=== PATIENT | male | born 1940 | race Asian ===

== ENCOUNTER 2017-04-04 15:37 | Inpatient (IN) | payer MEDICARE, MEDICAID ==
[2017-04-04] VITALS (10 sets, daily range): BP systolic 138–173; BP diastolic 61–83
[~2017-04-04] VITALS: Ht 177.8 cm; Wt 83.9 kg
[2017-04-04] MEDS ORDERED: ASPIRIN 81 MG TAB.CHEW ONE (15:55)
[2017-04-04] MEDS ORDERED: ASPIRIN 81 MG TAB.CHEW PO ONE (16:00)
--- NOTE | 2017-04-04 16:00 | NUR ---
[id number] FROM PMD'S OFFICE FOR WEAKNESS, BRADYCARDIA 40'S. PT AAOX3. DENIES CP, SOB. VSS. NOTED HR 70'S, 50'S. SEEN BY MD FOR EVAL. IV ACCESS ELECTRONIC WARFARE OFFICER. SAFETY AND COMFORT MEASURES PROVIDED. WILL MONITOR.
[2017-04-04 16:05] LABS: BASOPHILS # (AUTO) 0.1 /CMM (0.0-0.2); BASOPHILS % (AUTO) 0.8 % (0.0-2.0); EOSINOPHILS # (AUTO) 0.2 /CMM (0.0-0.7); EOSINOPHILS % (AUTO) 2.8 % (0.0-6.0); HEMATOCRIT 34 % (39-51); HEMOGLOBIN 11.6 g/dL (13.5-17.5); LYMPHOCYTES # (AUTO) 2.5 /CMM (0.8-4.8); LYMPHOCYTES % (AUTO) 31.4 % (20.0-44.0); MEAN CORPUSCULAR HEMOGLOBIN 28 PG (26.0-33.0); MEAN CORPUSCULAR HGB CONC 34 g/dl (31.0-36.0); MEAN CORPUSCULAR VOLUME 82 fL (80-96); MONOCYTES # (AUTO) 0.5 /CMM (0.1-1.30); NEUTROPHILS # (AUTO) 4.7 /CMM (1.8-8.9); PLATELET COUNT (AUTO) 251 /CMM (150-450); RDW COEFFICIENT OF VARIATION 14.4 (11.5-15.0); RED BLOOD CELL COUNT(AUTO) 4.11 MIL/uL (4.5-6.0)
[2017-04-04 16:20] LABS: ALANINE AMINOTRANSFERASE 30 U/L (12-78); ALBUMIN 3.5 g/dL (3.4-5.0); ALKALINE PHOSPHATASE 87 U/L (46-116); ASPARTATE AMINOTRANSFERASE 21 U/L (15-37); BILIRUBIN,DIRECT 0.1 mg/dL (0.0-0.2); BILIRUBIN,TOTAL 0.6 mg/dL (0.2-1.0); CALCIUM, SERUM 8.9 mg/dL (8.5-10.1); CARBON DIOXIDE 24 mmol/L (21-32); CHLORIDE 101 mmol/L (98-107); CREATININE 1.1 mg/dL (0.6-1.3); POTASSIUM 3.6 mmol/L (3.5-5.1); SODIUM SERUM 136 mmol/L (136-145); TOTAL PROTEIN, SERUM 7.6 g/dL (6.4-8.2); UREA NITROGEN, BLOOD 14 mg/dL (7-18)
[2017-04-04 16:22] LABS: GLUCOSE 462 mg/dL (74-106); INR 0.83 (0.85-1.15); TROPONIN I 0.046 ng/mL (0.00-0.056)
--- NOTE | 2017-04-04 16:57 | NUR ---
PATIENT HOME WEATHER[employer] HAS BEEN PAGED - DR RANGEL IS OPTIMIZATION ENGINEER
[2017-04-04] MEDS ORDERED: INSULIN REGULAR, HUMAN 100 UNIT/ML 10 ML VIAL IV ONE (17:00)
[2017-04-04] MEDS ORDERED: INSULIN REGULAR, HUMAN 100 UNIT/ML 10 ML VIAL ONE (17:16)
--- NOTE | 2017-04-04 17:49 | NUR ---
PAGED DR RANGEL AGAIN
--- NOTE | 2017-04-04 18:10 | NUR ---
PAGED EPIC FOR PANEL
--- NOTE | 2017-04-04 18:18 | NUR ---
CALLED NURSE SUP FOR TELE BED
--- NOTE | 2017-04-04 18:20 | NUR ---
PAGED DR DAWKINS FOR CONSULT
[2017-04-04] MEDS ORDERED: DEXTROSE 50%-WATER 50 ML DISP.SYRIN IV PRN (18:30)
[2017-04-04] MEDS ORDERED: ACETAMINOPHEN 325 MG TABLET PO PRN (18:30)
[2017-04-04] MEDS ORDERED: ONDANSETRON HCL/PF 4 MG/2 ML VIAL IVP PRN (18:30)
[2017-04-04] MEDS ORDERED: HYDROCODONE/APAP 5/325MG 1 EACH TABLET PO PRN (18:30)
[2017-04-04] MEDS ORDERED: MAG HYDROX/AL HYDROX/SIMETH 30 ML UDC PO PRN (18:30)
[2017-04-04] MEDS ORDERED: ZOLPIDEM TARTRATE 5 MG TABLET PO PRN (18:30)
[2017-04-04] MEDS ORDERED: ATROPINE SULFATE 1 MG/10 ML DISP.SYRIN IV PRN (18:30)
[2017-04-04] MEDS ORDERED: DOPamine 400 MG/D5W 250 ML RTU PIGGYBACK IV ONE (18:30)
[2017-04-04] MEDS ORDERED: Z GUARD REMEDY 2 OZ OINT TP PRN (18:30)
[2017-04-04] MEDS ORDERED: hydrALAZINE HCL IV 20 MG VIAL IV PRN (18:30)
[2017-04-04] MEDS ORDERED: SIMV40TA5 PO (18:31)
[2017-04-04] MEDS ORDERED: VALS1TAB54 PO (18:31)
[2017-04-04] MEDS ORDERED: FLUT16SP16 NS (18:31)
[2017-04-04] MEDS ORDERED: CLOP75TA15 PO (18:31)
[2017-04-04] MEDS ORDERED: METO200T49 PO (18:31)
[2017-04-04] MEDS ORDERED: NIFE60TA69 PO (18:31)
[2017-04-04] MEDS ORDERED: ASPI-1169 PO (18:31)
--- NOTE | 2017-04-04 18:42 | NUR ---
REPORT GIVEN TO HARRY IRWIN FOR TELE [id number]
[2017-04-04] MEDS ORDERED: hydrALAZINE HCL 25 MG TABLET PO SCH (21:00)
--- NOTE | 2017-04-04 21:30 | NUR ---
CITY DISTRIBUTION CLERK NOTES RECEIVED PT FROM 3W BUT WAS SUPPOSE TO BE ADMITTING TO ICU PER MD ORDER. ADMISSION WILL BE COMPLETED IN ICU. PT IS A/O X3, INDONESIAN SPEAKING BUT FLUENT IN SPANISH. ON O2 AT 2 LPM, DARRIN WELL. TELE READS 2 DEGREE HEART BLOCK. HR RANGES FROM 50-70S. ABLE TO EAT AND DRINK WITHOUT ISSUE OR RISK OF ASPIRATION. ABLE TO AMBULATE TO BEDSIDE COMMODE WITHOUT ASSISTANCE. IV SITE AT LEFT HAND 20G, INTACT AND PATENT. SON AT BEDSIDE. HOB ELEVATED. CALL LIGHT WITHIN REACH. DENIES CHEST PAIN AT THIS TIME. DENIES WEAKNESS, DIZZINESS OR HEADACHE.
[2017-04-04] MEDS: BLOOD SUGAR DIAGNOSTIC 1 EACH STRIP IN SCH (22:16)
[2017-04-04] MEDS: SIMVASTATIN 40 MG TABLET PO SCH (22:16)
[2017-04-04] MEDS: INSULIN REGULAR, HUMAN 100 UNIT/ML 3 ML VIAL SQ PRN (22:18)
--- NOTE | 2017-04-04 22:30 | NUR ---
[employer] CONTROL CLERK NOTES PT REFUSING BLOOD DRAW FOR TROPONIN LEVELS DESPITE DETAILED EDUCATION ABOUT IMPORTANCE OF REPEATED TROPONIN LEVELS.
[2017-04-05] VITALS (41 sets, daily range): BP systolic 123–181; BP diastolic 22–86
--- NOTE | 2017-04-05 04:30 | NUR ---
ELECTRONIC RESOURCES LIBRARIAN NOTES PT REFUSES BLOOD DRAW AT THIS TIME. STATES "IT'S TOO EARLY, I'VE NEVER HAD TO GIVEN BLOOD SO EARLY AT THE MANY OTHER HOSPITALS I'VE BEEN AT." WILL DELAY BLOOD DRAW AND ATTEMPT AGAIN AT 0700 WHEN PT HAS AWOKEN FOR THE DAY.
[2017-04-05] MEDS: INSULIN REGULAR, HUMAN 100 UNIT/ML 3 ML VIAL SQ PRN ×4 (07:47→22:24)
[2017-04-05] MEDS: BLOOD SUGAR DIAGNOSTIC 1 EACH STRIP IN SCH ×4 (07:51→22:22)
--- NOTE | 2017-04-05 08:00 | NUR ---
ICU/RN INTITIAL NOTES,AM RECEIVED REPORT FROM NIGHT NURSE. PT RESTING/SLEEPING. ON NASAL CANULA, NO DISTRESS NOTED. PT ALERT, AWAKE, ORIENTED. ON TELE, SINUS JEFFERY 33 WHILE SLEEPING, WHEN WOKEN UP, HR GOES INTO 70'S. PT ABLE TO TURN AND REPOSITION SELF IN BED, BED SIDE COMMODE AT BEDSIDE. AMBULATORY. SKIN INTACT. CARDIAC CONSULT PENDING. LEFT HAND PIV PATENT AND INTACT, PT REFUSES SECOND IV PLACEMENT. PT ALSO REFUSES AM BLOOD DRAW. EXPLAINED IMPORTANCE TO PT, PT CONTINUES TO REFUSE. STATING IT IS HIS RIGHT. ALL NEEDS WILL BE ATTENDED TO, SAFETY MEASURES TAKEN, BED IN LOW POSITION, SIDE RAILS UP, CALL LIGHT WITHIN REACH. WILL CONTINUE TO CLOSELY MONITOR.
[2017-04-05] MEDS: ASPIRIN 81 MG TAB.CHEW PO SCH (08:22)
[2017-04-05] MEDS: CLOPIDOGREL BISULFATE 75 MG TABLET PO SCH (08:22)
[2017-04-05] MEDS: VALSARTAN 80 MG TABLET PO SCH (08:22)
[2017-04-05] MEDS: HYDROCHLOROTHIAZIDE 25 MG TABLET PO SCH (08:22)
[2017-04-05] MEDS: NIFEdipine XL (30MG) 30 MG TAB PO SCH (08:23)
[2017-04-05] MEDS: FLUTICASONE PROPIONATE 16 GM BOTTLE NS SCH (08:25)
[2017-04-05] MEDS ORDERED: Medication Not On Formulary EA (Valsartan/Hydrochlorothiazide (Diovan Hct 320-25 Mg Tabl PO SCH (09:00)
--- NOTE | 2017-04-05 15:00 | NUR ---
ICU/RN: MD BRADLEY RODRIGUEZ AT BEDSIDE. EXTENSIVE DISCUSSION REGARDING PT'S DX. ALL QUESTIONS ANSWERED. TX OPTION DISCUSSED. PER MD PT WILL STAY ANOTHER NIGHT FOR OBSERVATION. PT DOES NOT WANT PACEMAKER. WILL CONTINUE TO MONITOR. DAUGHTER AT BEDSIDE.
[2017-04-05] MEDS: hydrALAZINE HCL 50 MG TABLET PO SCH (17:32)
--- NOTE | 2017-04-05 18:46 | NUR ---
ICU/RN ENDING NOTES,AM REPORT WILL BE ENDORSED TO NIGHT NURSE FOR CONTINUATION OF CARE. PT RESTING IN BED. SINUS ON TELE. ON 2 LITERS 02, NO DISTRESS. ALL NEEDS ATTENDED TO, SAFETY MEASURES TAKEN, BED IN LOW POSITION, SIDE RAILS UP, CALL LIGHT WITHIN REACH. WILL CONTINUE CARE. BED SIDE COMMODE AT BEDSIDE. AMBULATORY.
--- NOTE | 2017-04-05 19:53 | NUR ---
RN OPENING NOTES: RECEIVED PATIENT ON BED AWAKE AND ALERT AMBULATORY;ON O2 VIA NC AT 2LPM. TOLERATED WELL NOT IN APPARENT DISTRESS. IV ACCESS INTACT, SL AT THIS TIME. SINUS RHYTHM ON WITH 2ND DEGREE BLOCK HR AT 80'S. SAFETY MEASURES ENSURED. CONTINUOUSLY MONITORED.
[2017-04-05] MEDS: SIMVASTATIN 40 MG TABLET PO SCH (22:00)
[2017-04-06] VITALS (13 sets, daily range): BP systolic 129–166; BP diastolic 45–75
--- NOTE | 2017-04-06 08:00 | NUR ---
ICU/RN INTITIAL NOTES,AM RECEIVED REPORT FROM NIGHT NURSE. PT RESTING IN BED COMFORTABLY, ON NASAL CANULA, NO DISTRESS NOTED. PT ALERT, AWAKE, ORIENTED. ON TELE, SINUS RHYTHM WITH SECOND DEGREE HEART BLOCK, 70'S. PT ABLE TO TURN AND REPOSITION SELF IN BED, BED SIDE COMMODE AT BEDSIDE. AMBULATORY. SKIN INTACT.LEFT HAND PIV PATENT AND INTACT.ALL NEEDS WILL BE ATTENDED TO, SAFETY MEASURES TAKEN, BED IN LOW POSITION, SIDE RAILS UP, CALL LIGHT WITHIN REACH. WILL CONTINUE TO CLOSELY MONITOR.
[2017-04-06] MEDS: INSULIN REGULAR, HUMAN 100 UNIT/ML 3 ML VIAL SQ PRN (08:08)
[2017-04-06] MEDS: CLOPIDOGREL BISULFATE 75 MG TABLET PO SCH (08:09)
[2017-04-06] MEDS: NIFEdipine XL (30MG) 30 MG TAB PO SCH (08:09)
[2017-04-06] MEDS: hydrALAZINE HCL 50 MG TABLET PO SCH (08:10)
[2017-04-06] MEDS: VALSARTAN 80 MG TABLET PO SCH (08:10)
[2017-04-06] MEDS: HYDROCHLOROTHIAZIDE 25 MG TABLET PO SCH (08:10)
[2017-04-06] MEDS: FLUTICASONE PROPIONATE 16 GM BOTTLE NS SCH (08:11)
[2017-04-06] MEDS: BLOOD SUGAR DIAGNOSTIC 1 EACH STRIP IN SCH (08:11)
[2017-04-06] MEDS: ASPIRIN 81 MG TAB.CHEW PO SCH (08:13)
[2017-04-06] MEDS ORDERED: HYDR-4077 PO (09:09)
--- NOTE | 2017-04-06 10:30 | NUR ---
ICU/RN: AT BEDSIDE. PT ASSESSED, DISCHARGE ORDERS RECEIVED. WILL FOLLOW THOUGH
--- NOTE | 2017-04-06 11:42 | NUR ---
ICU/RN: DISCHARGE NOTE PT DISCHARGED PER MD ORDER. EXIT CARE DONE. PIV REMOVED, NO S/S OF BLEEDING NOTED. SON AT BEDSIDE TO TAKE PT HOME. ALL BELONGINGS SENT WITH PT, FORM SIGNED. MEDICATION PRESCRIPTION SEND WITH PT. EDUCATION REGARDING DX GIVEN. ALL QUESTIONS ANSWERED. PT WILL FOLLOW UP WITH PRIMARY MD. ALL NEEDS ATTENDED TO, PT ESCORTED OUT TO VEHICLE, ID BAND REMOVED. SKIN INTACT, NO PHOTOS NEEDED.
== END 2017-04-06 14:23 | disposition home or self-care (01) | DRG 310 ==
LOC: ER 15:41 → TELE 18:51 → ICU 20:07
PROVIDERS: ADMIT Internal Medicine; ATTEND Internal Medicine
DX: I44.1 Atrioventricular block, second degree (principal); E11.65 Type 2 diabetes mellitus with hyperglycemia; D63.8 Anemia in other chronic diseases classified elsewhere; I45.10 Unspecified right bundle-branch block; E66.9 Obesity, unspecified; E78.5 Hyperlipidemia, unspecified; I49.5 Sick sinus syndrome; I25.10 Atherosclerotic heart disease of native coronary artery without angina pectoris; Z95.1 Presence of aortocoronary bypass graft; Z86.010 Personal history of colon polyps; I10 Essential (primary) hypertension; Z98.61 Coronary angioplasty status; Z79.4 Long term (current) use of insulin; Z68.26 Body mass index [BMI] 26.0-26.9, adult; Z79.899 Other long term (current) drug therapy
CPT/HCPCS: 36415; 71045-TC; 80048-TC; 80076-TC; 82962-TC; 84484-TC; 85025-TC; 85730-TC; 87081-TC; A4606; J0360; J1815; Z7610